=== PATIENT | female | born 1950 | race American Indian/Alaskan Native ===

== ENCOUNTER 2017-12-14 10:18 | Outpatient (CLI) | payer BC ==
--- NOTE | 2017-12-14 11:03 | XRay Report ---
Right knee 4 views: History: Knee pain. Findings: Marked narrowing of the mediolateral and patellofemoral compartment knee joint with a sclerotic articular surfaces with osteophyte suggestive severe degenerative changes. This is more pronounced in the medial patellofemoral compartment and at the medial compartment of the knee joint. No joint effusion or fracture. Impression: Tricompartment degenerative changes.
== END 2017-12-14 10:19 | disposition home or self-care (01) ==
LOC: SPVIMAG 10:18
PROVIDERS: ATTEND Orthopaedic Surgery Sports Medicine
DX: M17.11 Unilateral primary osteoarthritis, right knee (principal)